=== PATIENT | male | born 1985 | race Caucasian/White ===

== ENCOUNTER 2019-10-03 11:34 | Emergency (ER) | payer OTHER, SELFPAY ==
[2019-10-03 11:39] VITALS: BP 136/72; PULSE 57; RESP 16; TEMP 36.6; O2SAT 96
--- NOTE | 2019-10-03 11:45 | ED.GENADUL_ITS ---
Discharge Plan Disposition Patient Disposition: HOME Condition: Good Discharge Details Chief Complaint: Orthopedic Clinical Impression: Multiple contusions, Fracture of rib Primary Care Provider: Jessi Quijano ED Provider: Nikole Chung Home Meds and New Rx's Prescriptions: Continued fluoxetine [Prozac] 40 mg Capsule 40 mg PO DAILY RF: 0 prazosin 2 mg Capsule 2 mg PO QHS RF: 0 buprenorphine HCl 8 mg Tablet, Sublingual 10 mg SUBLINGUAL RF: 0 bupropion HCl [Wellbutrin XL] 300 mg Tablet Extended Release 24 Hr 300 mg PO QAM RF: 0 gabapentin 300 mg Tablet Extended Release 24 Hr 900 mg PO QPM RF: 0 Discharge Instructions Instructions: Contusion in Adults (ED) Additional Instructions: Encourage hydration. Please continue with Tylenol and/or ibuprofen as needed for discomfort. Continue with other medications as prescribed. Imaging today reveals an incomplete left rib fracture. No other acute pathology. Encourage deep breathing with incentive spirometer. Please follow-up with primary care in 1 to 2 weeks. If you develop new or worsening symptoms please seek care urgently once again. Referrals: Jessi Quijano [Primary Care Provider] - Discharge Data Discharge Date/Time-TO BE ENTERED AT DEPARTURE: 10/03/19 14:11 Medical Decision Making Patient is a 34-year-old male presenting today in police custody, patient is currently incarcerated, presenting after falling out of his bed. Patient reports that he has night terrors and fell out of the top bunk at around 3 AM this morning. Not his head, no headache. Denies any neck or back pain. Since that time, he is been endorsing right thumb and left-sided chest wall discomfort. States the pain is worse with movement. Denies other area of discomfort. On exam, patient has discomfort with palpation of the left-sided chest wall. He also has tenderness in the left upper quadrant. No ecchymosis, swelling or evidence of objective torment. No palpable defect. No crepitus. Lungs are clear in all burciaga. He also has pain at the MCP joint of the right thumb. Full range of motion but pain with palpation particularly on the dorsal side. Ligamentous exam is intact. Sensation is intact. Exam is otherwise normal. With the area of discomfort, I am concerned for possible splenic injury. Ultrasound is not available. Plan for CT scan. Will scan but the chest in the abdomen to evaluate for any intrathoracic or intra-abdominal acute pathology. Patient remained n.p.o. while here. Plan for x-ray of the right thumb. Patient given Tylenol and ibuprofen for discomfort. FINDINGS: Bones/joints: Normal. Soft tissues: Normal. IMPRESSION: No evidence for fracture. CT reviewed by radiologist: Lungs: Unremarkable. No consolidation. No masses. Pleural space: Unremarkable. No pneumothorax. No pleural effusion. Heart: Unremarkable. No cardiomegaly. No pericardial effusion. Aorta: Unremarkable. No aortic aneurysm. Lymph nodes: Unremarkable. No enlarged lymph nodes. Bones/joints: There are is an incomplete fracture of the anterior aspect of the left fifth rib. No definite additional fractures are evident. Mild dextroscoliosis of the thoracic spine noted. Soft tissues: Unremarkable. IMPRESSION: Incomplete left anterior fifth rib fracture. Liver: Normal. No mass. Gallbladder and bile ducts: Normal. No calcified stones. No ductal dilation. Pancreas: Normal. No ductal dilation. Spleen: Mild heterogeneous enhancement of the spleen, artifact and bolus timing. Adrenals: Normal. No mass. Kidneys and ureters: Normal. No hydronephrosis. Stomach and bowel: Unremarkable. No obstruction. No mucosal thickening. Appendix: No evidence of appendicitis. Intraperitoneal space: Unremarkable. No free air. No significant fluid collection. Vasculature: Unremarkable. No abdominal aortic aneurysm. Lymph nodes: Unremarkable. No enlarged lymph nodes. Bladder: Unremarkable as visualized. Reproductive: Unremarkable as visualized. Bones/joints: Unremarkable. No acute fracture. Soft tissues: Unremarkable. IMPRESSION: No evidence for acute posttraumatic abnormality. Discussed these findings with the patient. Encourage deep breathing. Advised he can take Tylenol and ibuprofen as needed for discomfort. Patient was given incentive spirometer with instructions to use this. Advised that he should use this frequently throughout the course the day. Ideally, patient will use this at least 5 times daily. He was given return precautions. Advise follow-up with primary care in the next 1 to 2 weeks for reevaluation. All his questions and concerns were addressed and is in agreement this plan. HPI General Mode of arrival: ambulatory (escorted in by police) . Date/Time Provider Initiated Documentation: 10/03/19 11:45 . Limitations to Documentation: no limitations . Information obtained by: patient, police and RN notes reviewed . History of Present Illness 34 year old M presents to the emergency department with the chief complaint of Right thumb and left rib pain, with intensity rated at 8. Quality is described as aching, and is localized to the chest (Left-sided inferior chest wall pain), right and upper extremity. Patient reports no radiation. Patient started experiencing this hour(s) (0300) and it has been constant. Immobilization improves symptom(s), Movement worsens symptoms . Patient notes no other symptoms.. Patient did receive the following treatments prior to arrival, none Related Data Home Medications Medication Instructions Recorded Confirmed buprenorphine HCl 10 mg SUBLINGUAL 10/03/19 bupropion HCl [Wellbutrin XL] 300 mg PO QAM 10/03/19 10/03/19 fluoxetine [Prozac] 40 mg PO DAILY 10/03/19 10/03/19 gabapentin 900 mg PO QPM 10/03/19 10/03/19 prazosin 2 mg PO QHS 10/03/19 10/03/19 Allergies Allergy/AdvReac Type Severity Reaction Status Date / Time naltrexone Allergy Intermediate Other (See Unverified 10/03/19 11:41 Comment) General Stated Complaint: Orthopedic LAVINIA: 4 Review of Systems Constitutional Constitutional: Reports as per HPI, Denies chills, Denies fatigue, Denies fever(s), Denies headache(s), Denies snoring and Denies weakness Eyes Eyes: Reports as per HPI, Denies blurry vision, Denies change in vision and Denies loss of vision ENT Ears, Nose, Mouth, and Throat: Denies abnormal hearing and Denies headache(s) Cardiovascular Cardiovascular: Reports as per HPI, Denies chest pain, Denies dyspnea and Denies dyspnea on exertion Respiratory Respiratory: Reports as per HPI, Denies cough, Denies hemoptysis, Denies excessive phlegm production, Reports pain on inspiration, Reports pain with cough, Denies dyspnea, Denies dyspnea on exertion, Denies snoring and Denies wheezing Gastrointestinal Gastrointestinal: Reports as per HPI, Denies abdominal pain, Denies nausea and Denies vomiting Genitourinary Genitourinary: Reports as per HPI and Denies urinary incontinence Musculoskeletal Musculoskeletal: Reports as per HPI Integumentary/Breasts Skin/Breast: Reports as per HPI and Denies rash Neurologic Neurologic: Reports as per HPI, Denies abnormal hearing, Denies abnormal movements, Denies abnormal speech, Denies headache(s), Denies lack of coordination, Denies focal weakness, Denies loss of vision, Denies seizure-like activity, Denies paresthesias and Denies weakness Endocrine Endocrine: Denies fatigue Allergic/Immunologic Allergic/Immunologic: Denies wheezing [facility] Medical History Anxiety (Chronic) Night terrors (Acute) Opioid abuse (Acute) Social History Smoking/Tobacco Use Status: Never Alcohol Intake: former Drug use: Current Sobriety Substance use type: opiates Exam Const General: cooperative, healthy appearing, comfortable, no acute distress, well developed and well groomed Nutritional Appearance: average body habitus and well nourished Orientation: alert, awake and oriented x3 HENMT Head: normal to inspection, no palpable skull fracture, normocephalic and atraumatic Ears: hearing grossly normal bilaterally, external ears normal and TM's normal bilaterally General nose exam: external nose normal Mouth: oral mucosae normal, lip normal and tongue normal Throat: posterior oropharynx normal Eyes General: appearance normal, both eyes and all related structures Visual Burciaga: normal visual burciaga by confrontation Alignment and Position: alignment normal Periorbital: periorbital findings normal Eyelids: eyelids normal Conjunctivae: conjunctivae normal Pupils: PERRL EOM: EOM intact bilaterally Neck Neck: normal visual inspection, full ROM, no lymphadenopathy, no meningeal signs, trachea midline and supple Chest Chest: normal inspection of the chest, normal palpation of entire chest wall, no crepitus and localized rib tenderness with anteroposterior compression (left lateral inferior chest wall) Resp Effort & Inspection: normal respiratory effort, able to speak in complete sentences and no respiratory distress Auscultation: clear to auscultation bilaterally, no rales, no rhonchi and no wheezes Cardio Rate: regular rate Rhythm: regular rhythm Heart Sounds: S1 normal and S2 normal GI Inspection: normal to inspection, no abdominal wall ecchymosis, no edema and non-distended Palpation: soft, no hepatosplenomegaly, not firm, no guarding, no pulsatile masses, not rigid and tender in the LUQ Auscultation: normal bowel sounds Back/Spine/Pelvis Back: no CVA tenderness Cervical Spine: normal cervical lordosis and cervical ROM normal Thoracic/Lumbar Spine: thoracic and lumbar spine normal to inspection, thoraco- lumbar ROM normal, No thoraco-lumbar ROM limited, No thoraco-lumbar spasm and No thoracic spinal tenderness Pelvis: no pain with anterior-posterior compression and no pain with lateral compression Skin General skin exam: no rashes or lesions noted Lesions: no lesions Rashes: no rashes Trauma: no lacerations or abrasions Wounds: no wounds Neuro General: alert, awake, oriented x3, gait normal, tone normal and moves all extremities Cranial Nerves: CN's II-XI intact bilaterally Cognition: normal cognition Speech: speech normal Gait: normal gait Motor: muscle tone normal throughout and strength 5/5 throughout Sensory Exam: no sensory deficits noted (no saddle paresthesias) Extrem General: normal to inspection, full ROM, normal capillary refill, no pedal edema and no calf tenderness Right upper extremity: normal to inspection, full ROM, normal capillary refill, no joint enlargement, wrist Details: normal to inspection, normal ROM, normal vascular exam and radial pulse present; no tenderness (no snuffbox tenderness) and no swelling and hand Details: normal to inspection, normal capillary refill, neuromotor exam normal, neurosensory exam normal, tendon exam normal, tenderness Location: of the thumb Location: at the MCP joint, vascular exam Details: radial pulse present and normal capillary refill, normal ROM of fingers and no swelling; no unusual warmth Psych Appearance: grossly normal and well kempt Mental Status: mental status grossly normal Speech and Movement: speech and movement normal Course Vital Signs Vital signs: Vital Signs Temperature 36.6 C 10/03/19 11:39 Pulse 57 L 10/03/19 11:39 Respiratory Rate 16 10/03/19 11:39 Blood Pressure 136/72 10/03/19 11:39 Pulse Oximetry 96 10/03/19 11:39 Temperature 36.6 C 10/03/19 11:39 Temperature Source Skin 10/03/19 11:39 Pulse 57 L 10/03/19 11:39 Respiratory Rate 16 10/03/19 11:39 Blood Pressure 136/72 10/03/19 11:39 Pulse Oximetry 96 10/03/19 11:39 Oxygen Delivery Method Room Air 10/03/19 11:39 Oxygen Flow Rate 0 10/03/19 11:39 Pain Level 8 10/03/19 11:39
--- NOTE | 2019-10-03 12:01 | DI.RAD_ITS ---
EXAM: XR THUMB RT INDICATION: trauma. COMPARISON: No exams were available for comparison TECHNIQUE: 2D digital imaging was performed. FINDINGS: No fracture or dislocation is seen. IMPRESSION: Negative right thumb.
--- NOTE | 2019-10-03 12:01 | DI.CT_ITS ---
EXAM: CT CHEST/ABD/PEL W CLINICAL HISTORY: trauma, fall from height, LUQ and left rib pain TECHNIQUE: Post IV contrast. Without oral contrast. COMPARISON: No exams were available for comparison FINDINGS: The heart and great vessels appear intact. The lungs appear clear. There is a nondisplaced left 5th r ib fracture. There is no evidence of pneumothorax, pleural or pericardial effusion. No pulmonary cont usion is seen. No sternal or thoracic spine fracture is seen. Scoliosis is noted. The liver, gallbladder, spleen, pancreas, kidneys and adrenals appear normal. There is no free air, f ree fluid or bowel dilatation. The bladder and prostate appear intact. No spine or pelvic fractures a re seen. IMPRESSION: Left 5th rib fracture. No evidence of pneumothorax or splenic injury.
[2019-10-03 12:33] LABS: Abs Immature Grans 0.01 k/cumm (0.0-0.09); Absolute Basophil Count 0.04 k/cumm (0.0-0.2); Absolute Eosinophil Count 0.35 k/cumm (0.0-0.7); Absolute Lymphocyte Count 2.47 k/cumm (1.2-3.4); Absolute Monocyte Count 0.63 k/cumm (0.11-0.7); Basophils % 0.4; Eosinophils % 3.9; HGB 14.7 g/dL (13.5-17.5); Immature Grans % 0.1; Lymphocytes % 27.4; Mean Corp. HGB Concentration 34.2 g/dL (32.0-36.0); Mean Corpuscular Volume 87.8 fL (80-95); Mean Platelet Volume 10.5 fL (8.0-11.0); Neutrophils % 61.2; Platelet Count 338 x1000/uL (130-400); RBC Distribution Width 12.4 % (11.8-14.1)
[2019-10-03] MEDS: Omnipaque 350 MG/ML 100 ML BTL IJ (12:44)
[2019-10-03 12:46] LABS: ALT 30 U/L (16-63); AST 19 U/L (15-37); Albumin 4.1 g/dL (3.4-5.0); Alkaline Phosphatase 87 U/L (46-116); BUN 15 mg/dL (7-18); Bilirubin, Total 0.3 mg/dL (0.2-1.0); CREATININE 1.15 mg/dL (0.70-1.30); Calcium 8.9 mg/dL (8.5-10.1); Chloride 105 mmol/L (98-107); Glucose 86 mg/dL (70-100); Potassium 4.4 mmol/L (3.5-5.1); Sodium 141 mmol/L (136-145); Total Protein 7.6 g/dL (6.4-8.2)
[2019-10-03] MEDS: Normal Saline 1,000 ML 1000 ML IV (12:57)
[2019-10-03] MEDS: Ibuprofen 600 MG TAB PO (12:58)
[2019-10-03] MEDS: Acetaminophen 325 MG TAB 650 MG PO (12:58)
--- NOTE | 2019-10-03 13:27 | DI.VRAD_ITS ---
PROCEDURE INFORMATION: Exam: CT Chest With Contrast Exam date and time: 10/03/2019 12:40 PM Clinical history: 34 years old, male; Other: Trauma, fall from height, luq and lt rib pain TECHNIQUE: Imaging protocol: Computed tomography of the chest with intravenous contrast. Radiation optimization: All CT scans at this facility use at least one of these dose optimization techniques: automated exposure control; mA and/or kV adjustment per patient size (includes targeted exams where dose is matched to clinical indication); or iterative reconstruction. COMPARISON: No relevant prior studies available. FINDINGS: Lungs: Unremarkable. No consolidation. No masses. Pleural space: Unremarkable. No pneumothorax. No pleural effusion. Heart: Unremarkable. No cardiomegaly. No pericardial effusion. Aorta: Unremarkable. No aortic aneurysm. Lymph nodes: Unremarkable. No enlarged lymph nodes. Bones/joints: There are is an incomplete fracture of the anterior aspect of the left fifth rib. No definite additional fractures are evident. Mild dextroscoliosis of the thoracic spine noted. Soft tissues: Unremarkable. IMPRESSION: Incomplete left anterior fifth rib fracture. PROCEDURE INFORMATION: Exam: CT Abdomen And Pelvis With Contrast Exam date and time: 10/03/2019 12:40 PM Clinical history: 34 years old, male; Other: Trauma, fall from height, luq and lt rib pain TECHNIQUE: Imaging protocol: Computed tomography of the abdomen and pelvis with intravenous contrast. Radiation optimization: All CT scans at this facility use at least one of these dose optimization techniques: automated exposure control; mA and/or kV adjustment per patient size (includes targeted exams where dose is matched to clinical indication); or iterative reconstruction. COMPARISON: No relevant prior studies available. FINDINGS: Liver: Normal. No mass. Gallbladder and bile ducts: Normal. No calcified stones. No ductal dilation. Pancreas: Normal. No ductal dilation. Spleen: Mild heterogeneous enhancement of the spleen, artifact and bolus timing. Adrenals: Normal. No mass. Kidneys and ureters: Normal. No hydronephrosis. Stomach and bowel: Unremarkable. No obstruction. No mucosal thickening. Appendix: No evidence of appendicitis. Intraperitoneal space: Unremarkable. No free air. No significant fluid collection. Vasculature: Unremarkable. No abdominal aortic aneurysm. Lymph nodes: Unremarkable. No enlarged lymph nodes. Bladder: Unremarkable as visualized. Reproductive: Unremarkable as visualized. Bones/joints: Unremarkable. No acute fracture. Soft tissues: Unremarkable. IMPRESSION: No evidence for acute posttraumatic abnormality. COMMENT: Preliminary interpretation is based on receipt of 2173 image(s). A final report will be issued subsequently. Dictated and Authenticated by: Halley Reyes MD. Ordering:DAWIT Agustin MD
--- NOTE | 2019-10-03 13:29 | DI.VRAD_ITS ---
PROCEDURE INFORMATION: Exam: XR Right Finger(s) Exam date and time: 10/03/2019 12:46 PM Clinical history: 34 years old, male; Other: Trauma TECHNIQUE: Imaging protocol: XR Right fingers. Views: Minimum 2 views. COMPARISON: No relevant prior studies available. FINDINGS: Bones/joints: Normal. Soft tissues: Normal. IMPRESSION: No evidence for fracture. Preliminary interpretation is based on receipt of 3 image(s). A final report will be issued subsequently. Dictated and Authenticated by: Halley Reyes MD. Ordering:DAWIT Agustin MD
[2019-10-03 14:00] VITALS: BP 138/88; PULSE 60; RESP 16; O2SAT 100
== END 2019-10-03 14:11 | disposition home or self-care (01) ==
PROVIDERS: Emergency Provider Physician Assistant; PCP Nurse Practitioner
DX: S22.32XA Fracture of one rib, left side, initial encounter for closed fracture (principal); S60.011A Contusion of right thumb without damage to nail, initial encounter; W06.XXXA Fall from bed, initial encounter; F51.4 Sleep terrors [night terrors]
CPT/HCPCS: 74177; 80053; 96360; 99285; 71260; 73140; 85025; 99284; J3490

== ENCOUNTER 2020-06-27 08:09 | Emergency (ER) | payer OTHER, SELFPAY ==
[2020-06-27] VITALS (24 sets, daily range): BP systolic 141–151; BP diastolic 72–90; PULSE 79–91; RESP 12–16; TEMP 36.8; O2SAT 95–100
--- NOTE | 2020-06-27 08:00 | RT.EKG_ITS ---
APPROVED REPORT Exam: Resting ECG Patient Location: E HR:84 bpm ECG Measurements Heart Rate 84 AXIS ND 145 P 61 QRSd 88 QRS 40 QT 348 T 17 QTc 412 <Conclusion> Sinus rhythm. rate 84, unremarkable intervals
--- NOTE | 2020-06-27 08:15 | DI.RAD_ITS ---
EXAM: XR HIP RT COMPLETE AP PELVIS INDICATION: 15 ft fall. LBP, R hip pain, R shoulder pain. COMPARISON: No exams were available for comparison TECHNIQUE: 2D digital imaging was performed. FINDINGS: There is a comminuted fracture of the right pubis which is not significantly displaced. There is a f racture seen extending vertically through the right sacral a ala. The SI joints are not widened. Th ere is some contrast within the urinary bladder related to CT scan. There is a small amount of mass effect on the right side of the bladder secondary to mild amount hematoma which was seen on CT. The bladder appears intact IMPRESSION: Nondisplaced fracture of the right sacral ala. Comminuted right pubic fracture, not significantly d isplaced. DATA REPOSITORY: RADIATION DOSE DELIVERED:
--- NOTE | 2020-06-27 08:15 | DI.RAD_ITS ---
EXAM: XR WRIST LT COMPLETE CLINICAL HISTORY: L wrist pain after fall. TECHNIQUE: 2D digital imaging was performed. COMPARISON: No exams were available for comparison FINDINGS: There is a comminuted intra-articular fracture of the distal radius. . There is marked comminution at the dorsal medial aspect of the distal radius with multiple tiny fragments. There is some impacti on and separation at the articular surface. Ulnar styloid is also fractured. The carpal bones appea r intact. IMPRESSION: Comminuted intra-articular fracture of the distal radius and ulnar styloid fracture. DATA REPOSITORY: RADIATION DOSE DELIVERED:
--- NOTE | 2020-06-27 08:15 | DI.RAD_ITS ---
EXAM: XR SHOULDER RT COMPLETE 2+V CLINICAL HISTORY: R pain after fall. TECHNIQUE: 2D digital imaging was performed. COMPARISON: No exams were available for comparison FINDINGS: BONES: No acute fracture is present. No bony destructive lesion is seen. JOINTS: No dislocation present. SOFT TISSUE: Normal. IMPRESSION: Unremarkable radiographs of the right shoulder. DATA REPOSITORY: RADIATION DOSE DELIVERED:
--- NOTE | 2020-06-27 08:23 | W.ED.GENAD ---
Discharge Plan Disposition Patient Disposition: HOME Condition: Stable Discharge Details Chief Complaint: Trauma Clinical Impression: Pelvic fracture, Closed sacral fracture, Fracture of left distal radius Primary Care Provider: Jessi Quijano ED Provider: Sumanth Lyon Home Meds and New Rx's Prescriptions: Continued fluoxetine [Prozac] 40 mg Capsule 40 mg PO DAILY RF: 0 prazosin 2 mg Capsule 2 mg PO QHS RF: 0 buprenorphine HCl 8 mg Tablet, Sublingual 10 mg SUBLINGUAL RF: 0 bupropion HCl [Wellbutrin XL] 300 mg Tablet Extended Release 24 Hr 300 mg PO QAM RF: 0 gabapentin 300 mg Tablet Extended Release 24 Hr 900 mg PO QPM RF: 0 Discharge Instructions Instructions: Wrist Fracture in Adults (ED) Additional Instructions: You have a right pubic ramus and sacrum fracture (sacral ala) that will be treated with weightbearing as tolerated. You may use a crutch in the right arm to help with crutch walking. You have a left distal radius wrist fracture that will need to be followed up in orthopedic clinic. I discussed your case with Dr. Kang. Follow-up may be arranged the office at [phone]. The splint is to stay in place until seen by orthopedics. Your work-up in the ER included CT scans of the head, cervical spine, chest, abdomen, pelvis with spine recons. Medical Decision Making This is a 35-year-old male prisoner at the local corrections facility. He is reported to allegedly have escaped by scaling defense covered by razor wire and jumping approximately 15 feet to hard ground. He states he landed on his feet and ventral surface without loss of consciousness. He says he felt relatively immediate low back pain and right hip pain and states he crawled to a ditch where he has been staying for 3 days. No food or water. He was found by authorities this morning and transported by EMS. Patient was able to drink a bottle of water en route. He arrives complaining of low back pain, right hip pain and feeling cold. Patient has a temperature of 36.8, pulse 84, blood pressure 151/82. He has numerous abrasions and superficial lacerations likely from crawling on the ground and from passing through razor wire. His primary survey reveals cervical spine tenderness, right shoulder ecchymosis and tenderness, left distal radius tenderness and deformity with splint in place per EMS, right hip pain on palpation and lumbar pain on palpation. Patient IV access established, given 2 L fluid bolus, screening laboratories obtained he is given parenteral analgesia and tetanus booster. Referred for laboratory testing, screening EKG, radiographs of the affected extremities and CT imaging. CT images: There is a fracture extending vertically through the right sacral ala. There is a comminuted fracture of the right pubic ramus which is mildly displaced. There is a small amount of surrounding hematoma. The SI joints are not widened. The hips and lumbar spine appear intact. Patient has a left distal radius fracture. Images and bony fractures reviewed with Dr. Kang. He requests left wrist CT imaging, splinting and will follow-up in clinic for potential operative repair. For the patient's sacral fracture he will be weightbearing as tolerated. Labs noted white count of 11 which is likely due to stress, hematocrit is 36, platelets 210. Chemistries with BUN 37, creatinine 1.0. AST 72 with total bili 1.3. Note of CK 1166. Patient was rehydrated with 2 L plus of crystalloid. He was able to urinate and a lunch. Lab Data Lab results reviewed: Yes I reviewed the patient's lab results. Labs: Laboratory Results - last 24 hr 06/27/20 06/27/20 08:33 08:33 WBC 11.42 H RBC 4.21 L Hgb 12.3 L Hct 35.9 L MCV 85.3 MCH 29.2 MCHC 34.3 RDW 12.5 Plt Count 210 MPV 11.0 Immature Gran % 0.7 Neutrophils % 75.9 Lymphocytes % 12.4 Monocytes % 10.5 Eosinophils % 0.3 Basophils % 0.2 Absolute Neutrophils 8.67 H Absolute Lymphocytes 1.42 Absolute Monocytes 1.20 H Absolute Eosinophils 0.03 Absolute Basophils 0.02 Sodium 136 Potassium 4.2 Chloride 99 Carbon Dioxide 23.1 Anion Gap 13.9 H BUN 37 H Creatinine 1.05 Estimated GFR/1.73 m2 >= 60.00 Glucose 86 Calcium 8.9 Total Bilirubin 1.3 H AST 72 H ALT 58 Alkaline Phosphatase 66 Creatine Kinase 1166 H Total Protein 7.3 Albumin 3.8 Ethyl Alcohol < 3.0 HPI General Mode of arrival: EMS. Date/Time Provider Initiated Documentation: 06/27/20 08:36. Limitations to Documentation: no limitations. Information obtained by: patient, police and EMS. History of Present Illness 35 year old M presents to the emergency department with the chief complaint of Escape presents from correctional facility, 3 days in the [place], Quality is described as dull and constant, and is localized to the back, left, right, upper extremity and lower extremity. Patient started experiencing this day(s) and it has been constant. Rest improves symptom(s), Movement worsens symptoms . Patient notes denies chest pain, fever/chills, headaches, shortness of breath and syncope. Related Data Home Medications Medication Instructions Recorded Confirmed buprenorphine HCl 10 mg SUBLINGUAL 10/03/19 bupropion HCl [Wellbutrin XL] 300 mg PO QAM 10/03/19 10/03/19 fluoxetine [Prozac] 40 mg PO DAILY 10/03/19 10/03/19 gabapentin 900 mg PO QPM 10/03/19 10/03/19 prazosin 2 mg PO QHS 10/03/19 10/03/19 Allergies Allergy/AdvReac Type Severity Reaction Status Date / Time naltrexone Allergy Intermediate Other (See Unverified 06/27/20 08:21 Comment) General Stated Complaint: Trauma LAVINIA: 2 Review of Systems Narrative: Complains of right shoulder pain, left wrist pain, low back pain, right hip pain. Denies loss of consciousness. No headache. He denied to me neck or upper back pain. No shortness of breath. Tetanus unknown. 8 systems reviewed and otherwise negative [facility] Medical History Anxiety (Chronic) Night terrors (Acute) Opioid abuse (Acute) Social History Smoking/Tobacco Use Status: Never Alcohol Intake: former Drug use: Current Sobriety Substance use type: opiates Exam Narrative Exam Narrative: GEN: awake, alert, oriented 3. Pleasant, interactive. HEAD: Normocephalic, atraumatic ENT: Mucous membranes dry, oropharynx unremarkable, External ear exam unremarkable. No midface instability, no tenderness, no facial anesthesia EYES: PERRL, EOMI NECK: Tender mid C-spine to palpation without step-off or deformity, no TAHMINA, no menigismus CHEST/RESP: Nontender, clear to auscultation bilateral, no wheeze/rhonchi/rales. Linear abrasions to the anterior chest wall. Back: There is lumbar midline tenderness to palpation. No significant step-off appreciated. Perirectal sensation is intact. CARDIOVASCULAR: RRR, no murmur, rub link. 2+ Rad pulse bilateral ABDOMEN: Soft, tender right lower quadrant overlying ASIS, no mass. +Bowel sounds EXT: Right shoulder ecchymotic primarily laterally and tender to palpation. Full ROM, left wrist in splint, deformed and tender at the distal radius. Cap refills less than 2 seconds. Motor function is intact. The right hip is tender to palpation. Palpable dorsalis pedis pulse bilaterally with cap refill less than 2 seconds. There are numerous abrasions throughout the extremity. Neuro: Grossly normal neurologic exam, conversant, interactive. Skin: Numerous abrasions throughout the extremities, thorax and back. Psych: Speech fluent, thoughts congruent, affect normal Course Vital Signs Vital signs: Vital Signs Temperature 36.8 C 06/27/20 08:18 Pulse 84 06/27/20 08:18 Respiratory Rate 12 06/27/20 08:18 Pulse Oximetry 99 06/27/20 08:18 Temperature 36.8 C 06/27/20 08:18 Temperature Source Oral 06/27/20 08:18 Pulse 84 06/27/20 08:18 Respiratory Rate 12 06/27/20 08:18 Blood Pressure Position Supine 06/27/20 08:18 Pulse Oximetry 99 06/27/20 08:18 Oxygen Delivery Method Room Air 06/27/20 08:18 Oxygen Flow Rate 0 06/27/20 08:18 Pain Level 10 06/27/20 08:18 Procedures Orthopedic Splinting/Casting Injury #1: Side: left Upper Extremity Injury Location: wrist Upper Extremity Immobilizer: volar splint
[2020-06-27] MEDS: Lactated Ringers 1,000 ML 2000 ML IV (08:39)
[2020-06-27] MEDS: HYDROmorphone 2 MG/ML VIAL 0.5 MG IVP ×2 (08:39→13:37)
[2020-06-27 08:40] LABS: Abs Immature Grans 0.08 k/cumm (0.0-0.09); Absolute Basophil Count 0.02 k/cumm (0.0-0.2); Absolute Eosinophil Count 0.03 k/cumm (0.0-0.7); Absolute Lymphocyte Count 1.42 k/cumm (1.2-3.4); Absolute Neutrophil Count 8.67 k/cumm (1.2-6.7); Basophils % 0.2; Eosinophils % 0.3; HCT 35.9 % (40.0-50.0); HGB 12.3 g/dL (13.5-17.5); Immature Grans % 0.7 %; Lymphocytes % 12.4; Mean Corp. HGB Concentration 34.3 g/dL (32.0-36.0); Mean Corpuscular Hemoglobin 29.2 pg (27.0-33.0); Mean Corpuscular Volume 85.3 fL (80-95); Monocytes % 10.5; Neutrophils % 75.9; Platelet Count 210 x1000/uL (130-400); RBC 4.21 m/cumm (4.50-6.00); RBC Distribution Width 12.5 % (11.8-14.1); White Blood Cell Count 11.42 k/cumm (4.4-10.8)
--- NOTE | 2020-06-27 08:59 | DI.CT_ITS ---
EXAM: CT LUMBAR SPINE RECONS CLINICAL HISTORY: l spine recon please TECHNIQUE: Axial, coronal and sagittal images of the lumbar spine were reconstructed from the [facility] pelvic CT. COMPARISON: No exams were available for comparison FINDINGS: No lumbar spine fracture is seen. There is a vertically oriented lucency seen laterally in the righ t sacral ala. The SI joints are not widened. The disc spaces are well maintained. The alignment normal. IMPRESSION: Nondisplaced right sacral fracture. RADIATION DOSE DELIVERED: Total DLP
[2020-06-27 09:04] LABS: ALT 58 U/L (16-63); AST 72 U/L (15-37); Albumin 3.8 g/dL (3.4-5.0); Alkaline Phosphatase 66 U/L (46-116); Anion Gap 13.9 mmol/L (3-11); BUN 37 mg/dL (7-18); Bilirubin, Total 1.3 mg/dL (0.2-1.0); CO2 23.1 mmol/L (21.0-32.0); CREATININE 1.05 mg/dL (0.70-1.30); Calcium 8.9 mg/dL (8.5-10.1); Chloride 99 mmol/L (98-107); Glucose 86 mg/dL (74-106); Potassium 4.2 mmol/L (3.5-5.1); Sodium 136 mmol/L (136-145); Total Protein 7.3 g/dL (6.4-8.2)
[2020-06-27 09:05] LABS: Creatine Kinase 1166 U/L (39-308); ETHANOL BLOOD < 3.0 mg/dL (<3)
[2020-06-27] MEDS: Omnipaque 350 MG/ML 100 ML BTL IJ (09:48)
--- NOTE | 2020-06-27 09:48 | DI.CT_ITS ---
EXAM: CT CHEST/ABD/PEL W CLINICAL HISTORY: 15 ft fall. LBP, R hip pain, R shoulder pain. TECHNIQUE: Imaging Protocol: Axial computed tomography images with coronal and sagittal reformatted images were created and reviewed CONTRAST MATERIAL: Intravenous: Omnipaque 350 Contrast volume:structured data in ml Oral: yes / no COMPARISON: CT CT CHEST/ABD/PEL W from 10/03/2019 FINDINGS: CHEST: Thyroid: Normal Tracheobronchial tree: Patent where visualized. Mediastinum and Laina: No dominant adenopathy or fluid collection. Pulmonary parenchyma: No consolidation or dominant measurable mass. No architectural distortion. Pleura: No effusion or pneumothorax. Lymph nodes: Within normal limits. Aorta: Thoracic portion non-dilated. Heart: Normal size Bones: No rib or spine fracture. Scoliosis and degenerative changes are seen in the thoracic spine . ABDOMEN: Liver: Normal density. No measurable mass. Gallbladder and biliary tract: No radiodense calculus or dilation. Pancreas: Normal density, no abnormal calcifications or inflammatory process. Spleen: Normal. Kidneys: Normal size, contour and axis. No radiodense stones or obstructive uropathy. No masses seen. Adrenal glands: No masses seen. Aorta: Abdominal portion non-dilated. Lymph nodes: Within normal limits. PELVIS: Bladder: Symmetric distention, no gross wall thickening. Bowel: No obstruction or bowel wall thickening. Peritoneal cavity: No ascites, collection or mesenteric inflammatory response. Bones: There is a fracture extending vertically through the right sacral ala. There is a comminuted fracture of the right pubic ramus which is mildly displaced. There is a small amount of surrounding hematoma. The SI joints are not widened. The hips and lumbar spine appear intact. Reproductive organs: Within normal limits. IMPRESSION: Fracture of the right sacrum. Fracture the right pubic ramus. No acute abnormality in the chest.. RADIATION DOSE DELIVERED: Total DLP DATA REPOSITORY: All CT scans at this facility are submitted to the National Radiology Data Registry (NRDR) Dose Index Registry (DIR) with the [employer] (A[employer]). RADIATION OPTIMIZATION: All CT scans at this facility use at least one of these dose optimization te chniques: automated exposure control; mA and/or kV adjustment per patient size (includes targeted exa ms where dose is matched to clinical indication); or iterative reconstruction.
--- NOTE | 2020-06-27 09:49 | DI.CT_ITS ---
EXAM: CT HEAD CERVICAL SPINE WO CLINICAL HISTORY: 15 ft fall. LBP, R hip pain, R shoulder pain. TECHNIQUE: Imaging Protocol: Axial computed tomography images with coronal and sagittal reformatted images were created and reviewed COMPARISON: No exams were available for comparison FINDINGS: Head CT Ventricles and Extra axial spaces: Normal in size and morphology for the patient's age. Hemorrhage: None. Cerebral parenchyma: Normal. Midline shift: None. Brainstem/Cerebellum: Normal. Calvarium: Normal. Visualized Paranasal sinuses/Mastoids: Mucous retention in the right maxillary as well as several eth moid sinuses. Cervical Spine CT BONES: Vertebral body heights are maintained. Intervertebral disc spaces are normal. Alignment is nor mal. There is no evidence of acute fracture. SOFT TISSUES: No paraspinal hematoma. The airway appears intact. minimal degenerative disc changes and changes are seen . IMPRESSION: No acute abnormality. Degenerative changes, no acute abnormality. RADIATION DOSE DELIVERED: Total DLP DATA REPOSITORY: All CT scans at this facility are submitted to the National Radiology Data Registry (NRDR) Dose Index Registry (DIR) with the [employer] (ACR). RADIATION OPTIMIZATION: All CT scans at this facility use at least one of these dose optimization te chniques: automated exposure control; mA and/or kV adjustment per patient size (includes targeted exa ms where dose is matched to clinical indication); or iterative reconstruction.
[2020-06-27] MEDS: HYDROmorphone 2 MG/ML VIAL 1 MG IVP (10:43)
[2020-06-27] MEDS: Normal Saline 1,000 ML 150 ML IV (11:03)
--- NOTE | 2020-06-27 12:34 | DI.CT_ITS ---
EXAM: CT UPPER EXTREMITY LT WO CLINICAL HISTORY: distal radius fracture, pain TECHNIQUE: Imaging Protocol: Axial computed tomography images with coronal and sagittal reformatted images were created and reviewed. CONTRAST MATERIAL: Noncontrast COMPARISON: CR XR SHOULDER RT COMPLETE 2+V from 06/27/2020 CR XR WRIST LT COMPLETE from 06/27/2020 FINDINGS: There is a comminuted intra-articular fracture of the distal radius with both transverse and longitu dinally oriented components. There is marked comminution at the dorsal articular surface. There is separation at the articular surface and mild depression. There are numerous tiny bony fragments dors ally. The ulnar styloid is fractured with multiple tiny fragments. No carpal fractures are seen. C arpal alignment appears normal IMPRESSION: Comminuted intra-articular fracture of the distal radius. Comminuted ulnar styloid fracture. RADIATION DOSE DELIVERED: Total DLP DATA REPOSITORY: All CT scans at this facility are submitted to the National Radiology Data Registry (NRDR) Dose Index Registry (DIR) with the [employer] (ACR). RADIATION OPTIMIZATION: All CT scans at this facility use at least one of these dose optimization te chniques: automated exposure control; mA and/or kV adjustment per patient size (includes targeted exa ms where dose is matched to clinical indication); or iterative reconstruction.
== END 2020-06-27 13:49 | disposition home or self-care (01) ==
PROVIDERS: Emergency Provider Emergency Medicine; PCP Nurse Practitioner
DX: S32.110A Nondisplaced Zone I fracture of sacrum, initial encounter for closed fracture (principal); S32.501A Unspecified fracture of right pubis, initial encounter for closed fracture; S52.571A Other intraarticular fracture of lower end of right radius, initial encounter for closed fracture; S52.612A Displaced fracture of left ulna styloid process, initial encounter for closed fracture; M25.511 Pain in right shoulder; W17.89XA Other fall from one level to another, initial encounter; Y92.148 Other place in prison as the place of occurrence of the external cause
CPT/HCPCS: 36415; 74177; 80053; 82550; 90471; 93005; 96361; 96374; 96376; 99285; 70450; 71260; 72125; 73030; 73110; 73200; 73502; 80320; 85025; 93010; E0114; J3490; L0172